=== PATIENT | female | born 2000 | race Caucasian/White ===

== ENCOUNTER 2023-12-30 16:34 | Emergency (ER) | payer BC ==
[2023-12-30 17:09] LABS: BASOPHILS ABSOLUTE AUTO 0.05 K/uL (0.00-0.20); BASOPHILS PERCENT AUTO 0.5 % (0.0-1.0); EOSINOPHILS ABSOLUTE AUTO 0.01 K/uL (0.00-0.45); EOSINOPHILS PERCENT AUTO 0.1 % (0.0-6.0); HEMATOCRIT 40.8 % (37.0-47.0); HEMOGLOBIN 14.1 g/dL (12.0-16.0); IMMATURE GRAN ABSOLUTE AUTO 0.03 K/uL (0.00-0.05); IMMATURE GRAN PERCENT AUTO 0.3 % (0.0-0.4); LYMPHOCYTES ABSOLUTE AUTO 1.84 K/uL (1.00-4.80); LYMPHOCYTES PERCENT AUTO 18.1 % (24.0-44.0); MEAN CORPUSCULAR HEMOGLOBIN 30.9 pg (28.0-32.0); MEAN CORPUSCULAR HGB CONC 34.6 g/dL (32.0-36.0); MEAN CORPUSCULAR VOLUME 89.5 fL (83.0-99.0); MEAN PLATELET VOLUME 10.8 fL (9.4-12.3); MONOCYTES ABSOLUTE AUTO 0.59 K/uL (0.00-0.80); MONOCYTES PERCENT AUTO 5.8 % (0.0-8.0); NEUTROPHILS ABSOLUTE AUTO 7.67 K/uL (1.80-7.70); NEUTROPHILS PERCENT AUTO 75.2 % (41.0-71.0); PLATELET COUNT,PLT 225 K/uL (150-400); RED BLOOD CELL COUNT 4.56 M/uL (4.10-5.30); WHITE BLOOD CELL COUNT,WBC 10.19 K/uL (3.9-11.3)
[2023-12-30 18:04] LABS: A/G RATIO 1.1 (0.9-1.6); ALBUMIN 3.8 g/dL (3.4-5.0); BILIRUBIN TOTAL 0.3 mg/dL (0.2-1.0); CALCIUM 8.9 mg/dL (8.5-10.1); CARBON DIOXIDE,CO2 24.4 mmol/L (21.0-32.0); CREATININE 0.6 mg/dL (0.6-1.0); EST CRCL DRUG DOSING (CG) 141.81 mL/min; POTASSIUM,K 3.3 mmol/L (3.5-5.1); PROTEIN TOTAL,TP 7.2 g/dL (6.4-8.2)
[2023-12-30 19:16] LABS: APPEARANCE,URINE CLEAR; BILIRUBIN,URINE NEGATIVE (NEGATIVE); COLOR,URINE YELLOW; GLUCOSE,URINE NEGATIVE (NEGATIVE); KETONES,URINE TRACE mg/dL (NEGATIVE); LEUKOCYTE ESTERASE,URINE NEGATIVE (NEGATIVE); NITRITE,URINE NEGATIVE (NEGATIVE); OCCULT BLOOD,URINE NEGATIVE (NEGATIVE); PROTEIN,URINE NEGATIVE (NEGATIVE); UROBILINOGEN,URINE 0.2 EU/dL (<2.0)
[2023-12-30 20:12] LABS: CANDIDA DNA PROBE POSITIVE (NEGATIVE); GARDNERELLA DNA PROBE POSITIVE (NEGATIVE); TRICHOMONAS DNA PROBE NEGATIVE (NEGATIVE)
== END 2023-12-30 20:29 | disposition home or self-care (01) ==
LOC: MW.ED 16:34
DX: O23.591 Infection of other part of genital tract in pregnancy, first trimester (principal); B96.89 Other specified bacterial agents as the cause of diseases classified elsewhere; B37.31 Acute candidiasis of vulva and vagina; Z3A.10 10 weeks gestation of pregnancy; Z79.899 Other long term (current) drug therapy; Z88.0 Allergy status to penicillin; Z75.8 Other problems related to medical facilities and other health care
CPT/HCPCS: 36415; 76817; 76817-26; 80053; 81003; 84702; 85025; 86900; 86901; 87480; 87510; 87660; 99284

== ENCOUNTER 2024-04-10 10:33 | Emergency (ER) | payer BC, MEDICAID ==
[2024-04-10] MEDS ORDERED: Sodium Chloride 0.9% 10 ML Syringe FLUSH PRN (10:43)
[2024-04-10] MEDS ORDERED: Sodium Chloride 0.9% 2.5 ML Syringe FLUSH PRN (10:43)
[2024-04-10] MEDS: Sodium Chloride 0.9% 1,000 ML IV STA (11:14)
[2024-04-10 11:30] LABS: BASOPHILS ABSOLUTE AUTO 0.05 K/uL (0.00-0.20); BASOPHILS PERCENT AUTO 0.4 % (0.0-1.0); EOSINOPHILS ABSOLUTE AUTO 0.01 K/uL (0.00-0.45); EOSINOPHILS PERCENT AUTO 0.1 % (0.0-6.0); HEMATOCRIT 32.2 % (37.0-47.0); IMMATURE GRAN ABSOLUTE AUTO 0.12 K/uL (0.00-0.05); IMMATURE GRAN PERCENT AUTO 0.9 % (0.0-0.4); LYMPHOCYTES ABSOLUTE AUTO 1.48 K/uL (1.00-4.80); LYMPHOCYTES PERCENT AUTO 11.4 % (24.0-44.0); MEAN CORPUSCULAR HEMOGLOBIN 30.8 pg (28.0-32.0); MEAN CORPUSCULAR HGB CONC 34.2 g/dL (32.0-36.0); MEAN CORPUSCULAR VOLUME 90.2 fL (83.0-99.0); MEAN PLATELET VOLUME 11.3 fL (9.4-12.3); MONOCYTES ABSOLUTE AUTO 0.87 K/uL (0.00-0.80); MONOCYTES PERCENT AUTO 6.7 % (0.0-8.0); NEUTROPHILS ABSOLUTE AUTO 10.44 K/uL (1.80-7.70); NEUTROPHILS PERCENT AUTO 80.5 % (41.0-71.0); PLATELET COUNT,PLT 179 K/uL (150-400); RED BLOOD CELL COUNT 3.57 M/uL (4.10-5.30); WHITE BLOOD CELL COUNT,WBC 12.97 K/uL (3.9-11.3)
[2024-04-10 11:31] LABS: APPEARANCE,URINE CLEAR; BILIRUBIN,URINE NEGATIVE (NEGATIVE); COLOR,URINE YELLOW; GLUCOSE,URINE NEGATIVE (NEGATIVE); KETONES,URINE NEGATIVE (NEGATIVE); LEUKOCYTE ESTERASE,URINE NEGATIVE (NEGATIVE); NITRITE,URINE NEGATIVE (NEGATIVE); OCCULT BLOOD,URINE NEGATIVE (NEGATIVE); PROTEIN,URINE NEGATIVE (NEGATIVE); UROBILINOGEN,URINE 0.2 EU/dL (<2.0)
[2024-04-10 11:48] LABS: INR 0.94 (0.86-1.11)
[2024-04-10 11:51] LABS: CREATININE,URINE RAND 13.1 mg/dL
[2024-04-10 11:52] LABS: PROTEIN,URINE RANDOM < 6.0 mg/dL (<11.9)
[2024-04-10 12:09] LABS: A/G RATIO 0.8 (0.9-1.6); ALBUMIN 2.9 g/dL (3.4-5.0); BILIRUBIN TOTAL 0.3 mg/dL (0.2-1.0); CALCIUM 8.5 mg/dL (8.5-10.1); CARBON DIOXIDE,CO2 22.3 mmol/L (21.0-32.0); CREATININE 0.6 mg/dL (0.6-1.0); EST CRCL DRUG DOSING (CG) 147.1 mL/min; MAGNESIUM 2.2 mg/dL (1.8-2.4); POTASSIUM,K 4.1 mmol/L (3.5-5.1); PROTEIN TOTAL,TP 6.7 g/dL (6.4-8.2); TSH ULTRASENSITIVE 3.3 uIU/mL (0.36-3.74)
== END 2024-04-10 14:16 | disposition home or self-care (01) ==
LOC: MW.ED 10:33
DX: O99.891 Other specified diseases and conditions complicating pregnancy (principal); R42 Dizziness and giddiness; R60.0 Localized edema; Z3A.24 24 weeks gestation of pregnancy; Z75.8 Other problems related to medical facilities and other health care; Z88.0 Allergy status to penicillin
CPT/HCPCS: 36415; 80053; 81003; 82570; 83615; 83735; 84156; 84443; 85025; 85610; 87428; 93005; 93970; 96360; 99284; J7030

== ENCOUNTER 2024-07-23 20:02 | Inpatient (IN) | payer BC, MEDICAID ==
[2024-07-23] MEDS ORDERED: Carboprost Tromethamine 250 MCG/1 mL Vial IM PRN (20:28)
[2024-07-23] MEDS ORDERED: Methylergonovine 0.2 MG/1 ML Amp IM PRN (20:28)
[2024-07-23] MEDS ORDERED: Sodium Chloride 0.9% 2.5 ML Syringe FLUSH PRN (20:28)
[2024-07-23] MEDS ORDERED: Water For Irrigation,Sterile 1,000 ML Container IRR PRN (20:28)
[2024-07-23] MEDS ORDERED: Misoprostol 200 MCG Tab RECTAL PRN (20:28)
[2024-07-23] MEDS ORDERED: Terbutaline 1 MG/ML SDV SUBCUT PRN (20:28)
[2024-07-23] MEDS ORDERED: Lidocaine 1% 50 ML MDV INJECT PRN (20:28)
[2024-07-23] MEDS ORDERED: Sodium Chloride 0.9% 10 ML Syringe FLUSH PRN (20:28)
[2024-07-23] MEDS ORDERED: Misoprostol 200 MCG Tab PO PRN (20:28)
[2024-07-23] MEDS ORDERED: Sodium Chloride 0.9% 20 ML SDV IV PRN (20:28)
[2024-07-23] MEDS ORDERED: Oxytocin/0.9 % Sodium Chloride 30 UNIT/500 ML BAG IV SCH (20:30)
[2024-07-23] MEDS ORDERED: Tranexamic Acid in NACL,ISO-OS 1,000 MG in Premix Bag 1 BAG IV PRN (20:37)
[2024-07-23] MEDS ORDERED: Clindamycin Phosphate in D5W 900 MG in Premix Bag 1 BAG IV SCH (20:45)
[2024-07-23 21:19] LABS: HEMATOCRIT 36.9 % (37.0-47.0); HEMOGLOBIN 12.5 g/dL (12.0-16.0); MEAN CORPUSCULAR HEMOGLOBIN 29.6 pg (28.0-32.0); MEAN CORPUSCULAR HGB CONC 33.9 g/dL (32.0-36.0); MEAN CORPUSCULAR VOLUME 87.2 fL (83.0-99.0); MEAN PLATELET VOLUME 11.8 fL (9.4-12.3); PLATELET COUNT,PLT 187 K/uL (150-400); RED BLOOD CELL COUNT 4.23 M/uL (4.10-5.30); WHITE BLOOD CELL COUNT,WBC 14.09 K/uL (3.9-11.3)
[2024-07-23] MEDS: Lactated Ringers 1,000 ML IV SCH (21:57)
[2024-07-23] MEDS: Clindamycin Phosphate in D5W 900 MG in Premix Bag 1 BAG IV SCH (21:58)
[2024-07-23] MEDS: Misoprostol 25 MCG (1/4 of 100 MCG) Tab VAG PRN (22:03)
[2024-07-24] MEDS: Ondansetron 4 MG/2 ML SDV IVPUSH PRN (02:39)
[2024-07-24] MEDS: Misoprostol 25 MCG (1/4 of 100 MCG) Tab VAG PRN (02:43)
[2024-07-24] MEDS: Butorphanol 1 MG/ML SDV IVPUSH PRN (03:44)
[2024-07-24] MEDS ORDERED: ePHEDrine 50 MG/ML SDV IVPUSH PRN (04:16)
[2024-07-24] MEDS ORDERED: Phenylephrine HCl In 0.9% NaCl 1 MG/10 ML Syringe IVPUSH PRN (04:16)
[2024-07-24] MEDS ORDERED: dexmedeTOMIDine HCl 200 MCG/2 ML SDV EPIDUR SCH (04:30)
[2024-07-24] MEDS: Ropivacaine HCl/PF 400 MG in Premix Bag 1 BAG EPIDUR SCH (11:04)
[2024-07-24] MEDS ORDERED: fentaNYL 100 MCG/2 ML SDV ONE ×2 (11:15→19:48)
[2024-07-24] MEDS: Oxytocin/0.9 % Sodium Chloride 30 UNIT/500 ML BAG IV SCH (12:00)
[2024-07-24] MEDS ORDERED: Morphine PF 10 MG/10 ML SDV ONE (19:48)
[2024-07-24] MEDS ORDERED: Bupivacaine 0.5% 10 ML SDV ONE (19:48)
[2024-07-24] MEDS ORDERED: Ondansetron 4 MG/2 ML SDV ONE (19:49)
[2024-07-24] MEDS ORDERED: Oxytocin 10 Units/1 ML SDV ONE (19:49)
[2024-07-24] MEDS ORDERED: ceFAZolin 2 GM Vial ONE (19:50)
[2024-07-24] MEDS ORDERED: Ropivacaine 0.5% 5 MG/ML 30 ML SDV ONE (19:51)
[2024-07-24] MEDS ORDERED: Sodium Chloride 0.9% 20 ML ONE (20:02)
[2024-07-24] MEDS ORDERED: Dexamethasone 4 MG/ML 5 ML MDV ONE (20:11)
[2024-07-24] MEDS ORDERED: dexmedeTOMIDine HCl 200 MCG/2 ML SDV ONE (20:14)
[2024-07-24] MEDS ORDERED: Phenylephrine HCl In 0.9% NaCl 1 MG/10 ML Syringe ONE ×3 (20:26→20:48)
[2024-07-24] MEDS ORDERED: Nalbuphine 10 MG/1 ML Vial IVPUSH PRN (20:28)
[2024-07-24] MEDS ORDERED: Acetaminophen/oxyCODONE 325-5 MG Tab PO PRN ×2 (20:28→21:20)
[2024-07-24] MEDS ORDERED: fentaNYL 100 MCG/2 ML SDV IVPUSH PRN (20:28)
[2024-07-24] MEDS ORDERED: HYDROmorphone 1 MG/ML Syringe IVPUSH PRN (20:28)
[2024-07-24] MEDS ORDERED: Naloxone 0.4 MG/ML SDV IVPUSH PRN ×2 (20:28→21:20)
[2024-07-24] MEDS ORDERED: Albuterol 0.083% 2.5 MG/3 ML Neb Soln NEB PRN (20:28)
[2024-07-24] MEDS ORDERED: diphenhydrAMINE 50 MG/ML SDV IVPUSH PRN ×2 (20:28→21:20)
[2024-07-24] MEDS ORDERED: Morphine 2 MG/ML SYRINGE IVPUSH PRN (20:28)
[2024-07-24] MEDS ORDERED: fentaNYL 50 MCG/ML SDV IVPUSH PRN (20:28)
[2024-07-24] MEDS ORDERED: Ondansetron 4 MG/2 ML SDV IVPUSH PRN ×2 (20:28)
[2024-07-24] MEDS ORDERED: Metoclopramide 10 MG/2 ML SDV ONE (20:34)
[2024-07-24] MEDS ORDERED: droPERidol 5 MG/2 ML SDV ONE (20:34)
[2024-07-24] MEDS ORDERED: Phenylephrine 1% 10 MG/ML SDV ONE (20:52)
[2024-07-24] MEDS ORDERED: Calcium Chloride 10% 1 GM/10 ML Syringe ONE (20:54)
[2024-07-24] MEDS ORDERED: Oxytocin 10 Units/1 ML SDV IM PRN (21:20)
[2024-07-24] MEDS ORDERED: Misoprostol 200 MCG Tab RECTAL PRN (21:20)
[2024-07-24] MEDS ORDERED: Lanolin 100% Cream 7 GM Tube TOP PRN (21:20)
[2024-07-24] MEDS ORDERED: Bisacodyl 10 MG Supp RECTAL PRN (21:20)
[2024-07-24] MEDS ORDERED: Methylergonovine 0.2 MG/1 ML Amp IM PRN (21:20)
[2024-07-24] MEDS ORDERED: Lactated Ringers 1,000 ML IV SCH (21:30)
[2024-07-24] MEDS: Phenylephrine HCl In 0.9% NaCl 1 MG/10 ML Syringe IVPUSH PRN (21:36)
[2024-07-24 21:42] LABS: HEMATOCRIT 30.7 % (37.0-47.0); HEMOGLOBIN 10.2 g/dL (12.0-16.0); MEAN CORPUSCULAR HEMOGLOBIN 29.6 pg (28.0-32.0); MEAN CORPUSCULAR HGB CONC 33.2 g/dL (32.0-36.0); MEAN PLATELET VOLUME 11.6 fL (9.4-12.3); PLATELET COUNT,PLT 195 K/uL (150-400); RED BLOOD CELL COUNT 3.45 M/uL (4.10-5.30); WHITE BLOOD CELL COUNT,WBC 28.66 K/uL (3.9-11.3)
[2024-07-24] MEDS: Ketorolac 30 MG/ML SDV IVPUSH SCH (23:23)
[2024-07-25] MEDS: Ondansetron 4 MG/2 ML SDV IVPUSH PRN (00:57)
[2024-07-25 06:00] LABS: HEMATOCRIT 27.2 % (37.0-47.0); HEMOGLOBIN 9.3 g/dL (12.0-16.0)
[2024-07-25] MEDS: Metoclopramide 10 MG/2 ML SDV IVPUSH PRN (08:12)
[2024-07-25] MEDS: Docusate Sodium 100 MG Cap PO SCH (08:12)
[2024-07-26] MEDS: Ibuprofen 800 MG Tab PO PRN (05:00)
[2024-07-26] MEDS: Simethicone 80 MG Tab.Chew PO ONE (07:44)
[2024-07-26] MEDS: Acetaminophen/oxyCODONE 325-5 MG Tab PO PRN (07:45)
== END 2024-07-26 10:30 | disposition home or self-care (01) | DRG 540 ==
LOC: MW.OB 20:02 → OBSVTOIN 07-24 21:21 → MW.OB 07-25 00:01
PROVIDERS: ADMIT Obstetrics & Gynecology Gynecology; ATTEND Obstetrics & Gynecology Gynecology
PROC: 10D00Z1 Extraction of Products of Conception, Low, Open Approach (ICD-10-PCS; principal; 2024-07-24 20:15)
DX: O36.63X0 Maternal care for excessive fetal growth, third trimester, not applicable or unspecified (principal); O40.3XX0 Polyhydramnios, third trimester, not applicable or unspecified; O99.02 Anemia complicating childbirth; O99.824 Streptococcus B carrier state complicating childbirth; O26.86 Pruritic urticarial papules and plaques of pregnancy (PUPPP); Z3A.39 39 weeks gestation of pregnancy; Z37.0 Single live birth; Z88.0 Allergy status to penicillin; Z90.49 Acquired absence of other specified parts of digestive tract; Z79.899 Other long term (current) drug therapy
CPT/HCPCS: 01967; 01968; 36415; 51702; 59025; 59514; 64488; 85014; 85018; 85027; 86592; 86850; 86900; 86901; A9270-GY; J0595; J0665; J0690; J0736; J1100; J1790; J1885; J2274; J2371; J2405; J2590; J2765; J2795; J3010; J3490; J7120